=== PATIENT | female | born 1950 | race Two or more races ===

== ENCOUNTER 2024-10-07 17:27 | Emergency (ER) | payer SELFPAY ==
[~2024-10-07] VITALS: Ht 157.5 cm; Wt 68.0 kg
[2024-10-07] MEDS: ACETAMINOPHEN 325 MG TABLET PO ONE (19:00)
[2024-10-07] MEDS ORDERED: ACETAMINOPHEN 325 MG TABLET ONE (19:02)
[2024-10-07] MEDS ORDERED: PROPOFOL 20 ML IV ONE (20:16)
[2024-10-07] MEDS: PROPOFOL 200 MG/20 ML VIAL IV ONE (20:42)
[2024-10-07 22:46] VITALS: BP 146/86; TEMP 98.3; O2SAT 97
== END 2024-10-07 22:43 | disposition home or self-care (01) ==
LOC: ER 17:38
DX: S43.015A Anterior dislocation of left humerus, initial encounter (principal); Z60.2 Problems related to living alone; W18.39XA Other fall on same level, initial encounter; Y93.89 Activity, other specified; Y92.89 Other specified places as the place of occurrence of the external cause; Y99.8 Other external cause status
CPT/HCPCS: 99285; 23650; 99152; 73030; 73020; J2704; G0500